=== PATIENT | female | born 1955 | race Caucasian/White ===

== ENCOUNTER 2017-01-10 18:38 | Emergency (ER) | payer OTHER ==
[~2017-01-10] VITALS: Ht 162.6 cm; Wt 90.0 kg
[2017-01-10 19:10] VITALS: BP 155/95; PULSE 80; RESP 18; O2SAT 97
[2017-01-10 20:19] LABS: BASOPHILS % (AUTO) 0.2 % (0-3); EOSINOPHILS % (AUTO) 1.9 % (0-5); MONOCYTES % (AUTO) 8.5 % (4-12); Mean Corpuscular Hemoglobin 32.2 pg (27.0-35.0); Mean Corpuscular Volume 95.9 fL (81-100); NEUTROPHILS % (AUTO) 47.4 % (40-74); Platelet Count 235 bil/L (150-400)
--- NOTE | 2017-01-10 20:32 | ED.REPORT ---
HPI-Extremity Problem Lower Date of Service Jan 10, 2017 ED Provider: Aracely García MD 61 year old female with a history of HTN and hemochromatosis who is an everyday smoker presents to the ER accompanied by her spouse referred from the [facility] for DVT rule-out. She states that she struck her right pisano some months ago while attempting to get into her truck. Now she complains of pain behind her right knee that radiates throughout her thigh. Pain is dull at rest, and becomes sharper with ambulation. Associated symptoms include swelling and numbness/tingling in the right lower extremity. Patient denies any chest pain or SOB. Nursing Notes Stated Complaint: CHECK FOR BLOOD CLOT RIGHT LEG SENT BY CARMEN MARTE Chief Complaint: Extremity Trauma Nursing Notes Reviewed: Yes Allergies: Uncoded Allergies: SULFA (Allergy, Severe, 08/02/09) General Time Seen by MD: 20:31 Chief Complaint Leg injury right Hx Obtained From: Patient Arrived By: Walk-in Onset Occurred: More than a week ago... ("several months") Symptom Duration: Since onset Location: : Knee right: Leg right Quality: Dull, Painful, Sharp Severity: Current: Mild Severity: Maximum: Moderate Associated with: Reports: Numb extremities (Right Leg), Denies: Chest pain Pertinent Negative: Pt denies other symptoms Pertinent Negative: Exacerbated by nothing, Relieved by nothing Similar Sx Previous: No Past Medical History Past Medical History Hemochromatosis Reports: Hypertension Smoking History Current Every Day Smoker Social History Other Social History: Good social support Ambulatory Status Independent Review of Systems Constitutional: Denies: Chills, Fever Musculoskeletal: Reports: Extremity pain (Right Leg), Extremity swelling ( Right Leg), Joint pain, Denies: Back pain, Lumbar pain, Neck pain, Thoracic pain Neurologic: Reports: Numbness Complete sys rev & neg: except as marked. Respiratory: Denies: Non-productive cough, Shortness of breath Cardiovascular: Denies: Chest pain Physical Exam Physical Exam Notes: Initial Vital Signs Vital Signs (First) Date Time Temp Pulse Resp B/P Pulse Ox O2 Delivery O2 Flow Rate FiO2 01/10/17 19:10 36.8 80 18 155/95 97 Room Air Initial VS: Reviewed General/Constitutional: Well-developed, Well-nourished Head / Eyes: Atraumatic, Normocephalic Neck: Supple, Non-tender, Full range of motion Upper Extremities: Vascular intact, Neuro intact, No swelling, No tenderness Skin: Warm, Dry, No cyanosis Neurologic: Alert, Oriented, Nonfocal Lower Extremity / Pelvis / MS: Full range of motion, Neurologic intact, Vascular intact Right lower extremity is slightly larger than the Left. Palpable mass on back of the Right knee. Painless FROM both passive and active. 2+ DP PT pulses Ankle / Foot: Atraumatic, Inspection NL, Full range of motion, No swelling, No erythema, Non-tender, No deformity, Neurologic intact, Vascular intact, No edema Respiratory / Chest: Breath sounds NL, Breath sounds = bilat, No respiratory distress Coarse breath sounds bilaterally. Interpretation & Diagnostics Lab Results Interpretation Result Diagram: 01/10/17200901/10/172009 Test 01/10/17 20:10 01/10/17 22:10 White Blood Count 8.4th/mm3 (3.8-10.1) Red Blood Count 4.87mil/mm3 (3.90-5.20) Hemoglobin 15.7g/dL (12.0-15.6) Hematocrit 46.7% (35.0-46.0) Mean Corpuscular Volume 95.9fL (81-100) Mean Corpuscular Hemoglobin 32.2pg (27.0-35.0) Mean Corpuscular Hemoglobin Concent 33.6% (32.0-37.0) Red Cell Distribution Width 12.7% (12.3-15.4) Platelet Count 235bil/L (150-400) Neutrophils (%) (Auto) 47.4% (40-74) Lymphocytes (%) (Auto) 41.9% (14-46) Monocytes (%) (Auto) 8.5% (4-12) Eosinophils (%) (Auto) 1.9% (0-5) Basophils (%) (Auto) 0.2% (0-3) Prothrombin Time 9.6sec (8.1-12.5) Prothromb Time International Ratio 0.90ratio Sodium Level 138mEq/L (134-144) Potassium Level 4.5mEq/L (3.5-5.2) Chloride Level 101mEq/L (97-108) Carbon Dioxide Level 24mmol/L (18-29) Blood Urea Nitrogen 21mg/dL (8-27) Creatinine 0.79mg/dL (0.57-1.00) Estimat Glomerular Filtration Rate 106mL/min (>59) Glucose Level 109mg/dL (60-99) Calcium Level 9.5mg/dL (8.5-10.1) Total Bilirubin 0.4mg/dL (0.0-1.2) Aspartate Amino Transf (AST/SGOT) 28U/L (0-50) Alanine Aminotransferase (ALT/SGPT) 32U/L (0-32) Alkaline Phosphatase 87U/L (25-165) Total Protein 7.5g/dL (6.4-8.4) Albumin 4.2g/dL (3.4-5.0) Hold [place] Top Tube Received (Received) US Soft Tissue/Musculoskeletal RIGHT LOWER EXTREMITY IMPRESSION: No DVT or popliteal fossa abnormality. Electronically signed by Maya Andre MD Exam Performed by: Allied health pract Exam Type: Diagnostic Clinical Category: Symptom-based Exam Interpreted by: Radiologist Indication: Swelling, Pain Re-Eval/Medical Decision Med Decision/Clinical Course 61-year-old female sent here from outside facility for rule out of DVT. Patient has had several weeks of worsening swelling of her right lower extremity along with knee pain. Differential diagnosis includes but is not limited to DVT versus Bakers cyst versus dependent edema versus osteoarthritis. Ultrasound was normal, labs are normal. Patient is amenable to discharge with follow-up with her primary care physician. She has been given very strict return precautions. Source of Hx: Old records Re-Evaluation/Progress #1: Time of Eval: 22:09 Re-Evaluation/Progress Note: Patient is resting comfortably. Discussed initial US read. Updated patient on the plan of care. Re-Evaluation/Progress #2: Time of Eval: 23:07 Re-Evaluation/Progress Note: Discussed lab and imaging results and plan to discharge. Patient is amenable to the plan. Return precautions given. All other questions addressed. Counseled Regarding: Diagnosis, Lab results, Need for follow-up, When/why to return to ED Discharge & Departure Impression: Primary Impression: Knee pain Disposition: Home Discharge Condition All VS Reviewed: Yes Condition: Stable Patient Instructions: Knee Sprain (DC) Additional Instructions: Your evaluation today is reassuring, the ultrasound did not show any sign of a blood clot or Bloom's cyst. Follow-up with your primary care provider to arrange an appointment. Return to the ER if you develop worsening pain or swelling, shortness of breath , chest pain, or any other concerning symptoms. Referrals: Daxa Still MD (PCP) Joaquimibjose daniel Attestation Portions of this note were transcribed by Remy Lugo. I, Dr. García, personally performed the history, physical exam and medical decision-making; I reviewed and confirmed the accuracy of the information in the transcribed note. Signed by: Raul Patel. 01/10/2017 - 23:07 copies to: Daxa Still MD, Rebecca A MD Jan 10, 2017 20:32 REMY LUGO Jan 10, 2017 20:41
[2017-01-10 20:34] LABS: INR 0.9 ratio
[2017-01-10 20:54] VITALS: BP 130/76; PULSE 76; RESP 16; O2SAT 98
--- NOTE | 2017-01-11 07:58 | DRSVH ---
PROCEDURE: US VEINOUS LEG DUPLEX UNILATERAL, RIGHT INDICATIONS: swelling TECHNIQUE: Real-time imaging, as well as color and pulse Doppler interrogation, were performed of the lower extr emity deep veins from the inguinal ligament to the popliteal fossa. COMPARISON: None. FINDINGS: The deep veins are normally compressible, and free of intraluminal thrombus. Color and pu lse Doppler demonstrate normal phasic intraluminal flow. There is normal augmentation response to di stal compression maneuver. IMPRESSION: Negative for DVT Concordant with the preliminary report by accounting system expert radiology Dictated by: Ruben Aviles M.D. on 01/11/2017 at 7:55 Approved by: Ruben Aviles M.D. on 01/11/2017 at 7:56
== END 2017-01-10 23:29 | disposition home or self-care (01) ==
LOC: SED 18:38
DX: M25.561 Pain in right knee (principal); I10 Essential (primary) hypertension; F17.200 Nicotine dependence, unspecified, uncomplicated; W22.8XXA Striking against or struck by other objects, initial encounter; Y93.89 Activity, other specified; Y92.9 Unspecified place or not applicable; Y99.8 Other external cause status; Z88.2 Allergy status to sulfonamides

== ENCOUNTER → 2017-06-04 | Day surgery (SDC) | payer OTHER ==
[2017-06-04] VITALS (9 sets, daily range): BP systolic 163–185; BP diastolic 87–100; PULSE 70–84; RESP 13–17; O2SAT 94–100
[~2017-06-04] VITALS: Ht 162.6 cm; Wt 94.4 kg
[~2017-06-04] MED LIST: Atropine 0.4 mg/mL Inj IVPUSH PRN; Dexamethasone 4 mg/mL Inj IVPUSH PRN; EPHEDrine Sulfate 50 mg/mL Inj IVPUSH PRN; HYDROcodone-APAP 5-325 mg Tablet PO PRN; HYDROmorphone 1 mg/mL Inj IVPUSH PRN; LISI-567 PO; Labetalol 5 mg/mL 20 mL Inj IV PRN; Lactated Ringer's 1,000 ML IV SCH; Lactated Ringer's 500 ML IV PRN; Lidocaine 2%-Epi 1:100,000 20 mL Inj NERVEBLOCK ONE; MetoCLOpramide 5 mg/mL 2 mL Inj IVPUSH PRN; Ondansetron 2 mg/mL 2 mL Inj IVPUSH PRN; Ondansetron 2 mg/mL 2 mL Inj ONE; Phenylephrine 10,000 mCg/mL Inj IVPUSH PRN; Propofol 10 mg/mL 20 mL Inj ONE; Ropivacaine-PF 0.5% 30 mL Inj EPIDURAL ONE; fentaNYL-PF 50 mCg/mL 2 mL Inj ONE; hydrALAZINE 20 mg/mL Inj IVPUSH PRN; hydrOXYzine Pamoate 25 mg Capsule PO PRN
[2017-06-04] MEDS: Lactated Ringer's 1,000 ML IV SCH ×2 (13:39→14:05)
--- NOTE | 2017-06-04 14:00 | PCM.HPANE ---
Patient Data Date of Service: Jun 04, 2017 Surgeon Admitting Provider: Attending Provider:Robbie Hernandez DO Primary Care Physician:Daxa Still MD Other Provider:Orlando Gutierrez Anesthesia Reason for Visit Right Torn Medial Meniscus Ht/WT & BMI Height (Feet): 5 Height (Inches): 4 Weight (Kilograms): 94.4 Body Mass Index 35.00 Allergies Coded Allergies: sulfanilamide (Verified Allergy, Intermediate, shortness of breath, ) Sulfa (Sulfonamide Antibiotics) (Verified Allergy, Unknown, 06/04/17) Past Anesthesia History Anesthesia History: Denies:: Abnormal Airway, Anesthesia Reactions, Difficult Intubation, Fam Anesthesia Reaction, Fam Malignant Hypertherm, Malignant Hyperthermia Diabetes History Hx Diabetes?: No MRSA MRSA: No Medications Hypertension Medication: Yes (Lisinopriol) Home Meds Incl Beta Tj: No Reported Medications Lisinopril 20 Mg [id number] Mg PO DAILY 30 Days Ref 0 05/31/17 History History of ENT Problems?: No HEENT History: Denies:: Abnormal Airway Difficult Intubation Dysphagia Hearing Problem Sinus Problem TMJ Denture Type: None Teeth Condition: Tooth Decay (lower front) Hx of Heart Problems?: Yes Cardiovascular History: Positive for:: Hypertension Hx of Respiratory Problem?: Yes Respiratory History: Positive for:: Asthma Pneumonia Use of Inhalers / NEBS (Only as needed) Denies:: Hemoptysis Oxygen Administration Pulmonary Embolism Hx Neurologic Problems?: No Neurological History: Denies:: Alzheimer's Disease CVA Hx of GI Problems?: No Gastrointestinal History: Denies:: Cirrhosis Gastroesphageal Reflux Hx of Problems?: No HX of Peritoneal Dialysis: No Skin History: Denies:: History Skin Disorders? Pressure Ulcers Hx Musculoskeletal Problems?: Yes (meniscus injury) Musculoskeletal History: Denies:: Back Injury Degenerative Joint Fibromyalgia Joint Replacement Musculoskeletal Trauma Myasthenia Gravis Osteoarthritis Rheumatoid Arthritis Systemic Lupus Hx of Psycho/Social Problems?: No Hx Surgeries?: No (Hysterectomy 1996) Hx Any Other Health Problems?: Yes (hemochromatosis) Other History: Denies:: Cancer Endocrine Disease Hospitalization Thyroid Disease History Blood Transfusions: Positive for:: Accept Blood Products? Denies:: Blood Transfusions Hx Diabetes: No Hx Alcohol Use: NoHx Substance Use: No Smoking Status: Current Every Day Smoker Have You Smoked inLast 12 mo: YesApprox How Many Cigarettes/day: 8- Stop/Bang S-Snoring: Do You Snore Loudly: No T-Tired: feel tired, fatigued: No O-Obsered: Observed not breath: No P-Blood Pressure: treated: Yes B- Body Mass Index > 35 kg/m2: No A- Age over 50: Yes N- Neck Large Circumference: No G- Gender Male: No DIONE Total Score: 2 DIONE Risk Assessment: Low Risk, <3 Yes Risk Assessment Category Category 1A: Patient has history of documented sleep apnea, and HAS NOT received any narcotic, sedative or anesthesia administration during this stay. Category 1B: Patient has history of documented sleep apnea, and HAS received any narcotic , sedative or anesthesia administration during this stay Category 2: Patient has SUSPECTED Obstructive Sleep Apnea, and HAS received any narcotic , sedative or anesthesia administration during this stay. Category 3: Patient has SUSPECTED Obstructive Sleep Apnea and HAS NOT received narcotic, sedative or anesthesia administration during this stay. Category 4: Outpatient in Procedural Areas with known sleep apnea or who screen positive for High Risk via the STOP/BANG questionnaire. Exam Exam Vital Signs Vital Signs Date Time Temp Pulse Resp B/P Pulse Ox O2 Delivery O2 Flow Rate FiO2 06/04/17 13:44 84 16 168/100 97 Room Air General Appearance: Alert, Oriented X3, Cooperative HEENT/AIRWAY: MP 2, Neck Movement (OK), Mouth Opening (Wide) Lungs: Clear to Auscultation, Normal Air Movement Heart: Regular Rate/Rhythm, Normal S1, Normal S2 Meds/Labs/Diagnostics Admission Meds Current Medications Lactated Ringer's (Lr) 1,000 ml @ 120 mls/hr [id number] IV Last administered on t 13:39; Start 06/04/17 at 05:00; Stop 06/04/17 at 13:24; Status DC Labs Reviewed from 01/2017. Wnl Plan Impression Patient chart reviewed, patient interviewed and anesthestic plan with risks, benefits, and alternatives discussed, and informed consent obtained. NPO per Anesth. Guidelines: Yes ASA Physical Status: ASA2 Mod Systemic Disease Anesthetic Plan: GA Bene/Risks/Altern/Consents: Yes HP Complete Prior to Induction: Yes Haroon Briscoe MD Jun 04, 2017 13:59
--- NOTE | 2017-06-04 15:21 | PCM.ANEP1 ---
Post Anesthesia PACU Phase 1 Assessment Date of Service: Jun 04, 2017 Vital Signs Vital Signs Date Time Temp Pulse Resp B/P Pulse Ox O2 Delivery O2 Flow Rate FiO2 06/04/17 15:05 72 15 179/91 100 Simple Mask 10 06/04/17 15:00 36.8 76 17 179/92 100 Simple Mask 10 06/04/17 13:44 84 16 168/100 97 Room Air Anesthetic Administered: GA Level of Alertness: Awake, talking SWAIN's with Equal Strength: Yes Pain: No Nausea or Vomiting: No CV Function & Hydration Stable: Yes Airway Device: Lungs: Clear to Auscultation, Normal Air Movement Dermatome Level: Full Sensation PACU Phase 2 Assessment Complications: No Follow up Care: N/A Patient Instructions Provided: N/A Haroon Briscoe MD Jun 04, 2017 15:21
[2017-06-04] MEDS: fentaNYL-PF 50 mCg/mL 2 mL Inj IVPUSH PRN ×2 (15:31→15:40)
--- NOTE | 2017-06-04 17:26 | OP ---
[address] [address] OPERATIVE REPORT PATIENT: JASPAL DOTY : 1955 MR#: [id number] ADMIT: 06/04/2017 JOB ID: [id number] DATE OF SURGERY: 06/04/2017 SURGEON: Robbie Hernandez DO. DIRECTOR OF PROVIDER RELATIONS: Elaine Mckeon DO. PREOPERATIVE DIAGNOSIS(ES): Right knee torn medial meniscus. POSTOPERATIVE DIAGNOSIS(ES): Right knee torn medial meniscus with patellofemoral synovitis. PROCEDURES: 1. Right knee arthroscopy with partial medial meniscectomy. 2. Patellofemoral femoral synovectomy, limited. INDICATIONS: The patient is a 61-year-old female with right knee pain who has failed conservative measures and wished to proceed with a right knee arthroscopy. She had an MRI which was concerning for a torn meniscus and clinically seemed to be suffering from a torn meniscus. We discussed the risks, benefits, and possible complications of surgery including, but not limited to, injury to nerves and vessels, infection, bleeding, incomplete relief symptoms, stiffness, need for additional procedures. The patient had good understanding of all questions and she wished to proceed. PROCEDURE IN DETAIL: The patient was brought to the operating room. She was given a preoperative LMA general anesthetic. The right lower extremity was sterilely prepped and draped. An incision was made over the anterolateral knee at the level of joint line. A blunt trocar was introduced into the knee. Inspection was undertaken. She was found to have a tear in the posterior horn medial meniscus. This was resected back to a stable base with a combination of biters and federico. Using a medial portal, her cartilage had some softening, C2, C3 changes on the femoral condyle. The anterior cruciate ligament was intact. The lateral compartment was in excellent condition with no degenerative change. Her patellofemoral joint had some mild chondromalacia at C1-C2 and some synovitis on the medial and lateral gutters and in the patellofemoral joint which was resected with the shaver. The scope was then removed and the portals were closed with interrupted nylon suture. Naropin was added as an adjunct local anesthetic. Sterile dressings were applied. Patient tolerated the procedure well. BLOOD LOSS: Minimal. POSTOPERATIVE PROTOCOL: Will have the patient weightbear to tolerance, ice and elevate and follow up in two weeks or sooner if needed.
== END | disposition home or self-care (01) ==
LOC: SAS 13:03
PROVIDERS: ATTEND Orthopaedic Surgery
DX: M23.221 Derangement of posterior horn of medial meniscus due to old tear or injury, right knee (principal); M65.861 Other synovitis and tenosynovitis, right lower leg; M22.41 Chondromalacia patellae, right knee; M25.561 Pain in right knee; I10 Essential (primary) hypertension; J45.909 Unspecified asthma, uncomplicated; F17.210 Nicotine dependence, cigarettes, uncomplicated